=== PATIENT | male | born 1990 | race Caucasian/White ===

== ENCOUNTER 2017-10-22 06:27 | Emergency (ER) | payer MEDICAID ==
[~2017-10-22] VITALS: Ht 182.9 cm; Wt 72.0 kg
[2017-10-22] MEDS ORDERED: LORAZEPAM 0.5MG TABLET PO ONE (07:45)
[2017-10-22 07:52] VITALS: BP 126/76
[2017-10-22 07:54] LABS: CLARITY URINE CLEAR (CLEAR); COLOR URINE YELLOW (YELLOW); KETONES URINE NEGATIVE (NEGATIVE); LEUKOCYTE ESTERASE URINE NEGATIVE (NEGATIVE); NITRITE URINE NEGATIVE (NEGATIVE); OCCULT BLOOD URINE NEGATIVE (NEGATIVE); PH URINE 7.5 (4.5-8.0); PROTEIN URINE NEGATIVE (NEGATIVE); SPECIFIC GRAVITY URINE 1.022 (1.005-1.030)
== END 2017-10-22 08:30 | disposition left against medical advice (07) ==
LOC: ER 06:27
DX: R11.2 Nausea with vomiting, unspecified (principal); F17.200 Nicotine dependence, unspecified, uncomplicated
CPT/HCPCS: 81003; 99283; Z7610

== ENCOUNTER 2017-11-05 15:17 | Emergency (ER) | payer MEDICAID ==
[~2017-11-05] VITALS: Ht 185.4 cm; Wt 76.0 kg
[2017-11-05 15:36] VITALS: BP 140/90
== END 2017-11-05 19:15 | disposition left against medical advice (07) ==
LOC: ER 15:17
DX: M79.1 Myalgia (principal); Z53.21 Procedure and treatment not carried out due to patient leaving prior to being seen by health care provider

== ENCOUNTER 2023-04-06 04:15 | Emergency (ER) | payer MEDICAID ==
[~2023-04-06] VITALS: Ht 182.9 cm; Wt 91.0 kg
[2023-04-06 04:20] VITALS: BP 97/71; PULSE 89; RESP 16; TEMP 97.8; O2SAT 98
[2023-04-06] MEDS ORDERED: NALO4SPR BOTHNSTRLS (06:17)
[2023-04-06] MEDS ORDERED: BUPR1FIL5 SL (06:17)
[2023-04-06] MEDS: BUPRENORPHINE 8MG SL TABLET SL ONE (06:23)
[2023-04-06] MEDS: ONDANSETRON HCL 4MG TABLET PO ONE (06:23)
== END 2023-04-06 06:26 | disposition home or self-care (01) ==
LOC: ER 04:15
DX: F11.23 Opioid dependence with withdrawal (principal)
CPT/HCPCS: 99283; Z7610